=== PATIENT | male | born 1985 | race Caucasian/White ===

== ENCOUNTER 2017-06-04 19:19 | Emergency (ER) | payer SELFPAY | END 2017-06-04 20:17 | disposition left against medical advice (07) | LOC: EMS 19:22 | DX: L02.419 Cutaneous abscess of limb, unspecified (principal); Z53.21 Procedure and treatment not carried out due to patient leaving prior to being seen by health care provider ==

== ENCOUNTER 2017-06-04 20:26 | Emergency (ER) | payer MEDICAID ==
[~2017-06-04] VITALS: Ht 188 cm; Wt 81.8 kg
[2017-06-04] MEDS ORDERED: CEPHALEXIN MONOHYDRATE 500 MG CAPSULE PO ONE (21:00)
[2017-06-04] MEDS ORDERED: SULFAMETHOX/TRIMETH DS 800-160 MG/TABLET PO ONE (21:00)
[2017-06-04 21:51] VITALS: BP 147/79
== END 2017-06-04 22:33 | disposition home or self-care (01) ==
LOC: EMS 20:28
DX: L02.416 Cutaneous abscess of left lower limb (principal); L02.415 Cutaneous abscess of right lower limb; L03.116 Cellulitis of left lower limb; L03.115 Cellulitis of right lower limb; F11.10 Opioid abuse, uncomplicated; F17.210 Nicotine dependence, cigarettes, uncomplicated
CPT/HCPCS: 99283

== ENCOUNTER 2017-09-22 03:23 | Emergency (ER) | payer MEDICAID ==
[~2017-09-22] VITALS: Ht 188 cm; Wt 80.0 kg
[2017-09-22] MEDS ORDERED: CEPHALEXIN MONOHYDRATE 500 MG CAPSULE PO ONE (06:45)
[2017-09-22] MEDS ORDERED: SULFAMETHOX/TRIMETH DS 800-160 MG/TABLET PO ONE (06:45)
[2017-09-22] MEDS ORDERED: BACITRACIN/POLYMYXIN B 15 GM OINTMENT TP ONE (06:45)
[2017-09-22 06:54] VITALS: BP 136/77
== END 2017-09-22 07:16 | disposition home or self-care (01) ==
LOC: EMS 03:24
DX: L03.116 Cellulitis of left lower limb (principal); L03.115 Cellulitis of right lower limb; F17.210 Nicotine dependence, cigarettes, uncomplicated; F11.90 Opioid use, unspecified, uncomplicated
CPT/HCPCS: 99284

== ENCOUNTER 2018-02-23 17:58 | Inpatient (IN) | payer MEDICAID, OTHER ==
[~2018-02-23] VITALS: Ht 188 cm; Wt 78.0 kg
[2018-02-23] MEDS ORDERED: GABAPENTIN 100 MG CAPSULE PO ONE (18:30)
[2018-02-23] MEDS ORDERED: SODIUM CHLORIDE 0.9% 1,000 ML IV ONE ×2 (18:30→22:15)
[2018-02-23] MEDS ORDERED: KETOROLAC TROMETHAMINE 30 MG/ML VIAL IVP ONE (18:30)
[2018-02-23] MEDS ORDERED: DIAZEPAM 5 MG/ML 2 ML SYRINGE IVP ONE (18:30)
[2018-02-23] MEDS ORDERED: IOVERSOL 350 MG/ML 150 ML VIAL ONE (19:26)
[2018-02-23] MEDS ORDERED: KETOROLAC TROMETHAMINE 60 MG/2 ML VIAL IM ONE (20:30)
[2018-02-23] MEDS ORDERED: DIAZEPAM 5 MG/ML 2 ML SYRINGE IM ONE (20:30)
[2018-02-23 21:36] LABS: BASOPHILS % (AUTO) 0.4 % (0.0-2.0); EOSINOPHILS % (AUTO) 0.6 % (1.0-6.0); HEMATOCRIT 26.9 % (41-53); HEMOGLOBIN 8.9 g/dL (13.5-17.5); LYMPHOCYTES # (AUTO) 2.2 K/uL (1.0-4.8); LYMPHOCYTES % (AUTO) 21.2 % (22.0-44.0); MEAN CORPUSCULAR HEMOGLOBIN 22.9 pg (26.0-34.0); MEAN CORPUSCULAR HGB CONC 33.1 G/dL (31.0-37.0); MEAN CORPUSCULAR VOLUME 69 fL (80-100); MONOCYTES # (AUTO) 0.8 K/uL (0.1-1.0); MONOCYTES % (AUTO) 7.8 % (2.0-9.0); NEUTROPHILS # (AUTO) 7.3 K/uL (1.8-7.7); PLATELET COUNT (AUTO) 339 K/uL (150-450); RED BLOOD CELL COUNT(AUTO) 3.89 MIL/uL (4.50-5.90); RED CELL DISTRIBUTION WIDTH 16.2 % (11.5-14.5)
[2018-02-23 21:45] LABS: ANION GAP 5 mmol/L (8-16); CALCIUM, TOTAL 7.9 mg/dL (8.8-10.5); CARBON DIOXIDE 31 mmol/L (22-29); CHLORIDE 98 mmol/L (98-107); CREATININE 0.62 mg/dL (0.60-1.30); GLOMERULAR FILTR. RATE CALC > 60 mL/min (>60); GLUCOSE,RANDOM 106 mg/dL (70-110); POTASSIUM 3.5 mmol/L (3.5-5.1); SODIUM SERUM 134 mmol/L (136-145); UREA NITROGEN, BLOOD 10 mg/dL (7-18)
[2018-02-23 21:51] LABS: ALANINE AMINOTRANSFERASE 20 U/L (12-78); ALBUMIN 2.2 g/dL (3.4-5.0); ALKALINE PHOSPHATASE 74 U/L (46-116); ASPARTATE AMINOTRANSFERASE 26 U/L (15-37); BILIRUBIN,TOTAL 0.5 mg/dL (0.1-1.0); TOTAL PROTEIN, SERUM 7.5 g/dL (6.4-8.2)
[2018-02-23] MEDS ORDERED: BISACODYL 10 MG RECTAL RECTAL SUPPOSITORY PR PRN (22:00)
[2018-02-23] MEDS ORDERED: POTASSIUM CHLORIDE 20 MEQ ER TABLET PO ONE (22:00)
[2018-02-23] MEDS ORDERED: VANCOMYCIN HCL 1.5 GM in DEXTROSE 5%-WATER 250 ML IV ONE (22:00)
[2018-02-23] MEDS ORDERED: ONDANSETRON HCL 4 MG/2 ML VIAL IVP PRN ×2 (22:00→22:15)
[2018-02-23] MEDS ORDERED: OxyCODONE HCL/ACETAMINOPHEN 5-325 MG TABLET PO PRN (22:00)
[2018-02-23] MEDS ORDERED: ACETAMINOPHEN 325 MG TABLET PO PRN ×2 (22:00→22:15)
[2018-02-23] MEDS ORDERED: 0.9% SODIUM CHLORIDE 10 ML SYRINGE IVP PRN (22:15)
[2018-02-23 22:58] LABS: ERYTHROCYTE SEDIMENTATION RATE 54 MM/HR (0-15)
[2018-02-23] MEDS: METHADONE HCL 10 MG TABLET PO SCH (23:01)
[2018-02-23] MEDS: PIPERACILLIN/TAZO 3.375 GM/D5W 50 ML IV SCH (23:01)
[2018-02-24 01:28] VITALS: BP 108/63
[2018-02-24] MEDS: HEPARIN SODIUM,PORCINE 5,000 UNITS/ML VIAL SQ SCH ×3 (01:37→16:00)
[2018-02-24] MEDS: MORPHINE SULFATE 4 MG/ML SYRINGE IVP PRN ×3 (02:36→16:37)
[2018-02-24] MEDS: PIPERACILLIN/TAZO 3.375 GM/D5W 50 ML IV SCH ×4 (04:21→22:12)
[2018-02-24 04:56] VITALS: BP 97/48
[2018-02-24 06:00] LABS: BASOPHILS % (AUTO) 0.3 % (0.0-2.0); EOSINOPHILS % (AUTO) 0.7 % (1.0-6.0); HEMATOCRIT 27.6 % (41-53); HEMOGLOBIN 9.1 g/dL (13.5-17.5); LYMPHOCYTES # (AUTO) 1.2 K/uL (1.0-4.8); LYMPHOCYTES % (AUTO) 11.4 % (22.0-44.0); MEAN CORPUSCULAR HEMOGLOBIN 22.9 pg (26.0-34.0); MEAN CORPUSCULAR HGB CONC 33.1 G/dL (31.0-37.0); MEAN CORPUSCULAR VOLUME 69 fL (80-100); MONOCYTES # (AUTO) 0.6 K/uL (0.1-1.0); MONOCYTES % (AUTO) 5.9 % (2.0-9.0); NEUTROPHILS # (AUTO) 8.3 K/uL (1.8-7.7); NEUTROPHILS % (AUTO) 81.7 % (40.0-70.0); PLATELET COUNT (AUTO) 288 K/uL (150-450); RED BLOOD CELL COUNT(AUTO) 3.99 MIL/uL (4.50-5.90); RED CELL DISTRIBUTION WIDTH 16.4 % (11.5-14.5)
[2018-02-24] MEDS: VANCOMYCIN HCL 1.5 GM in DEXTROSE 5%-WATER 250 ML IV SCH ×3 (06:02→19:44)
[2018-02-24 06:25] LABS: ANION GAP 7 mmol/L (8-16); CALCIUM, TOTAL 8.1 mg/dL (8.8-10.5); CARBON DIOXIDE 28 mmol/L (22-29); CHLORIDE 98 mmol/L (98-107); CREATININE 0.71 mg/dL (0.60-1.30); GLOMERULAR FILTR. RATE CALC > 60 mL/min (>60); GLUCOSE,RANDOM 104 mg/dL (70-110); POTASSIUM 3.7 mmol/L (3.5-5.1); SODIUM SERUM 133 mmol/L (136-145); UREA NITROGEN, BLOOD 9 mg/dL (7-18)
[2018-02-24 07:42] VITALS: BP 109/52
[2018-02-24 08:02] LABS: APPEARANCE,URINE CLEAR (CLEAR); BILIRUBIN,URINE NEGATIVE (NEGATIVE); GLUCOSE, URINE (UA) NEGATIVE (NEGATIVE); KETONES,URINE NEGATIVE (NEGATIVE); LEUKOCYTE ESTERASE ,URINE NEGATIVE (NEGATIVE); NITRATE,URINE NEGATIVE (NEGATIVE); OCCULT BLOOD,URINE NEGATIVE (NEGATIVE); PROTEIN,URINE NEGATIVE (NEGATIVE)
[2018-02-24 08:06] LABS: AMPHET/METH SCREEN,URINE POSITIVE (NEGATIVE); BARBITURATE SCREEN, URINE NEGATIVE (NEGATIVE); BENZODIAZEPINES SCREEN,URINE POSITIVE (NEGATIVE); CANNABINOID SCREEN,URINE NEGATIVE (NEGATIVE); COCAINE SCREEN,URINE NEGATIVE (NEGATIVE); METHADONE SCREEN, URINE NEGATIVE (NEGATIVE); OPIATE SCREEN,URINE POSITIVE (NEGATIVE)
[2018-02-24 08:07] LABS: PHENCYCLIDINE SCREEN,URINE NEGATIVE (NEGATIVE)
[2018-02-24] MEDS ORDERED: GADOBUTROL 1 MMOL/ML 10 ML VIAL IVP ONE (11:27)
[2018-02-24 13:18] VITALS: BP 107/55
[2018-02-24] MEDS: MULTIVITAMINS WITH MINERALS, THERAPEUTIC TABLET PO SCH (13:36)
[2018-02-24] MEDS: DOCUSATE SODIUM 100 MG CAPSULE PO SCH ×2 (13:37→20:32)
[2018-02-24] MEDS: PANTOPRAZOLE SODIUM 40 MG DR TABLET PO SCH (13:37)
[2018-02-24 16:24] VITALS: BP 118/64
[2018-02-24 19:26] VITALS: BP 107/53
[2018-02-24] MEDS: METHADONE HCL 10 MG TABLET PO SCH (20:33)
[2018-02-25 00:06] VITALS: BP 116/62
[2018-02-25] MEDS: VANCOMYCIN HCL 1.5 GM in DEXTROSE 5%-WATER 250 ML IV SCH ×2 (00:44→06:31)
[2018-02-25] MEDS: HEPARIN SODIUM,PORCINE 5,000 UNITS/ML VIAL SQ SCH ×3 (00:44→09:14)
[2018-02-25] MEDS: MORPHINE SULFATE 4 MG/ML SYRINGE IVP PRN ×2 (01:21→06:31)
[2018-02-25] MEDS: PIPERACILLIN/TAZO 3.375 GM/D5W 50 ML IV SCH ×2 (03:51→09:14)
[2018-02-25 04:00] VITALS: BP 124/66
[2018-02-25 06:39] LABS: ANION GAP 2 mmol/L (8-16); CARBON DIOXIDE 34 mmol/L (22-29); CHLORIDE 99 mmol/L (98-107); CREATININE 0.84 mg/dL (0.60-1.30); GLOMERULAR FILTR. RATE CALC > 60 mL/min (>60); GLUCOSE,RANDOM 124 mg/dL (70-110); POTASSIUM 3.2 mmol/L (3.5-5.1); SODIUM SERUM 135 mmol/L (136-145); UREA NITROGEN, BLOOD 8 mg/dL (7-18)
[2018-02-25 07:47] VITALS: BP 128/68
[2018-02-25 08:01] LABS: VANCOMYCIN,RANDOM 55.6 mcg/mL (25.0-50.0)
[2018-02-25 08:07] LABS: HIV 1-2 SCREEN 4TH GEN W/RFLX Non Reactive (Non Reactive)
[2018-02-25] MEDS: PANTOPRAZOLE SODIUM 40 MG DR TABLET PO SCH (09:14)
[2018-02-25] MEDS: MULTIVITAMINS WITH MINERALS, THERAPEUTIC TABLET PO SCH (09:14)
[2018-02-25] MEDS: DOCUSATE SODIUM 100 MG CAPSULE PO SCH (09:15)
[2018-02-25] MEDS ORDERED: VANCOMYCIN HCL 1 GM/D5% WATER 200 ML IV PRN (12:30)
== END 2018-02-25 12:00 | disposition left against medical advice (07) | DRG 347 ==
LOC: EMS 17:58 → 6N 22:06
PROVIDERS: ADMIT Internal Medicine; ATTEND Internal Medicine
PROC: 06HN33Z Insertion of Infusion Device into Left Femoral Vein, Percutaneous Approach (ICD-10-PCS; principal; 2018-02-23)
DX: M51.86 Other intervertebral disc disorders, lumbar region (principal); E43 Unspecified severe protein-calorie malnutrition; L03.115 Cellulitis of right lower limb; M54.5 Low back pain; S81.802A Unspecified open wound, left lower leg, initial encounter; S81.801A Unspecified open wound, right lower leg, initial encounter; D63.8 Anemia in other chronic diseases classified elsewhere; F11.10 Opioid abuse, uncomplicated; X58.XXXA Exposure to other specified factors, initial encounter; F15.10 Other stimulant abuse, uncomplicated; F19.10 Other psychoactive substance abuse, uncomplicated; L03.116 Cellulitis of left lower limb; Z53.21 Procedure and treatment not carried out due to patient leaving prior to being seen by health care provider; F17.210 Nicotine dependence, cigarettes, uncomplicated; Z91.19 Patient's noncompliance with other medical treatment and regimen; Z79.899 Other long term (current) drug therapy; Z68.22 Body mass index [BMI] 22.0-22.9, adult; Z71.6 Tobacco abuse counseling; Y93.89 Activity, other specified; Y92.89 Other specified places as the place of occurrence of the external cause; Y99.8 Other external cause status
CPT/HCPCS: 36556; 72157; 72158; 73701; 80307; 83605; 85651; 86803; 87040; 87081; 87205; 87340; 87389; 93005; 96365; 96366; 96368; 96372; 99285; A9585; J1644; J1885; J2270; J2543; J3370; J7030; J7060

== ENCOUNTER 2018-02-26 20:35 | Emergency (ER) | payer MEDICAID ==
[~2018-02-26] VITALS: Ht 188 cm; Wt 81.8 kg
[2018-02-26 21:03] VITALS: BP 128/68
== END 2018-02-26 22:03 | disposition left against medical advice (07) ==
LOC: EMS 20:37
DX: M54.9 Dorsalgia, unspecified (principal); F17.210 Nicotine dependence, cigarettes, uncomplicated; F11.90 Opioid use, unspecified, uncomplicated; F19.90 Other psychoactive substance use, unspecified, uncomplicated; Z53.21 Procedure and treatment not carried out due to patient leaving prior to being seen by health care provider

== ENCOUNTER 2018-05-20 17:52 | Emergency (ER) | payer MEDICAID ==
[~2018-05-20] VITALS: Ht 188 cm; Wt 81.8 kg
[2018-05-20] MEDS ORDERED: HYDR-309 PO (18:27)
[2018-05-20] MEDS ORDERED: METH10 PO (18:27)
[2018-05-20] MEDS: KETOROLAC TROMETHAMINE 30 MG/ML VIAL IM ONE ×2 (20:47→20:52)
[2018-05-20 21:17] VITALS: BP 118/72
== END 2018-05-20 21:21 | disposition home or self-care (01) ==
LOC: EMS 17:54
DX: M54.5 Low back pain (principal); G89.29 Other chronic pain; F11.20 Opioid dependence, uncomplicated; F17.210 Nicotine dependence, cigarettes, uncomplicated; F11.90 Opioid use, unspecified, uncomplicated; F19.90 Other psychoactive substance use, unspecified, uncomplicated
CPT/HCPCS: 99283; 99406; J1885

== ENCOUNTER 2018-07-12 19:14 | Emergency (ER) | payer MEDICAID ==
[~2018-07-12] VITALS: Ht 185.4 cm; Wt 81.8 kg
[~2018-07-12 19:14] MED LIST: HYDR-309 PO; METH10 PO
[2018-07-12] MEDS ORDERED: SULFAMETHOX/TRIMETH DS 800-160 MG/TABLET PO ONE (20:15)
[2018-07-12] MEDS ORDERED: PERTUSS(ACELL),DIPH,TET VAC/PF 0.5 ML VIAL IM ONE (20:15)
[2018-07-12] MEDS ORDERED: CEPHALEXIN MONOHYDRATE 500 MG CAPSULE PO ONE (20:15)
[2018-07-12] MEDS ORDERED: LIDOCAINE 1% 10 ML VIAL INJ ONE (20:15)
[2018-07-12 21:00] VITALS: BP 120/79
== END 2018-07-12 21:17 | disposition home or self-care (01) ==
LOC: EMS 19:14
DX: S01.81XA Laceration without foreign body of other part of head, initial encounter (principal); F11.90 Opioid use, unspecified, uncomplicated; F19.90 Other psychoactive substance use, unspecified, uncomplicated; W22.8XXA Striking against or struck by other objects, initial encounter; Y93.01 Activity, walking, marching and hiking; Y92.89 Other specified places as the place of occurrence of the external cause; Y99.8 Other external cause status
CPT/HCPCS: 12011; 90471; 90715; 99283; J3490; 12001

== ENCOUNTER 2019-08-28 23:57 | Emergency (ER) | payer MEDICAID ==
[~2019-08-28] VITALS: Ht 188 cm; Wt 77.3 kg
[~2019-08-28 23:57] MED LIST changes: -HYDR-309 PO
[2019-08-29 03:44] VITALS: BP 135/77
== END 2019-08-29 03:44 | disposition home or self-care (01) ==
LOC: EMS 23:59
DX: L97.219 Non-pressure chronic ulcer of right calf with unspecified severity (principal)

== ENCOUNTER 2024-07-13 22:00 | Emergency (ER) | payer MEDICAID, OTHER ==
[~2024-07-13] VITALS: Ht 188 cm; Wt 86.4 kg
[2024-07-13 22:09] VITALS: BP 136/87; PULSE 107; RESP 18; TEMP 98.9; O2SAT 96
[2024-07-13] MEDS: LIDOCAINE 1% 10 ML VIAL SQ ONE (23:07)
[2024-07-13] MEDS: PERTUSS(ACELL),DIPH,TET/PF 0.5 ML SYRINGE [ADULT] IM. ONE (23:07)
== END 2024-07-14 00:02 | disposition home or self-care (01) ==
LOC: EMS 22:00
DX: S01.111A Laceration without foreign body of right eyelid and periocular area, initial encounter (principal); F17.210 Nicotine dependence, cigarettes, uncomplicated; W22.8XXA Striking against or struck by other objects, initial encounter; Y93.89 Activity, other specified; Y92.89 Other specified places as the place of occurrence of the external cause; Y99.8 Other external cause status
CPT/HCPCS: 99283; 90715; 90471; 12011; J3490

== ENCOUNTER 2024-11-14 01:00 | Emergency (ER) | payer OTHER ==
[~2024-11-14] VITALS: Ht 188 cm; Wt 81.8 kg
[2024-11-14 01:04] VITALS: TEMP 98.2
[2024-11-14] MEDS ORDERED: CEPH-558 PO (01:55)
[2024-11-14] MEDS ORDERED: SULF-261 PO (01:55)
[2024-11-14 02:00] VITALS: BP 119/71; PULSE 88; RESP 15; O2SAT 99
== END 2024-11-14 02:04 | disposition home or self-care (01) ==
LOC: EMS 01:01
DX: S81.801A Unspecified open wound, right lower leg, initial encounter (principal); S81.802A Unspecified open wound, left lower leg, initial encounter; Y93.89 Activity, other specified; Y92.89 Other specified places as the place of occurrence of the external cause; Y99.8 Other external cause status
CPT/HCPCS: 99283; Z7502

== ENCOUNTER 2024-12-19 20:32 | Emergency (ER) | payer OTHER ==
[~2024-12-19] VITALS: Ht 188 cm; Wt 81.8 kg
[~2024-12-19 20:32] MED LIST changes: +CEPH-558 PO; -METH10 PO; +SULF-261 PO
[2024-12-19 20:40] VITALS: BP 128/80; PULSE 109; RESP 20; TEMP 98.3; O2SAT 99
== END 2024-12-20 01:35 | disposition left against medical advice (07) ==
LOC: EMS 20:33
DX: Z53.21 Procedure and treatment not carried out due to patient leaving prior to being seen by health care provider (principal)

== ENCOUNTER 2024-12-24 06:46 | Emergency (ER) | payer OTHER ==
[~2024-12-24] VITALS: Ht 188 cm; Wt 86.4 kg
[2024-12-24 07:00] VITALS: BP 125/62; PULSE 99; RESP 18; TEMP 98.4; O2SAT 100
== END 2024-12-24 07:27 | disposition home or self-care (01) ==
LOC: EMS 06:50
DX: M79.604 Pain in right leg (principal); M79.605 Pain in left leg; F17.210 Nicotine dependence, cigarettes, uncomplicated
CPT/HCPCS: 99281; Z7502